=== PATIENT | female | born 1955 | race Caucasian/White ===

== ENCOUNTER 2022-10-14 06:45 | Emergency (ER) | payer SELFPAY ==
[~2022-10-14] VITALS: Ht 157.5 cm; Wt 99.8 kg
[~2022-10-14 06:45] MED LIST: EFFEXOR XR 3737.5 MG PO; EFFXR75 PO; EVISTA60 MG PO; FEXOFENADINE HC60 MG PO; FIORICET1 EA PO; LEVAQUIN500 MG PO; LEVOTHYROXINE50 MCG PO; LOPRESSOR25 MG PO; NRC7.5T PO; VENLAFAXINE HCL75 M1 PO
[2022-10-14] MEDS ORDERED: PAXLOVID 300-11 EACH PO (07:52)
[2022-10-14] MEDS ORDERED: ONDANSETRON ODT4 MG PO (07:53)
== END 2022-10-14 08:10 | disposition home or self-care (01) ==
LOC: FSED 07:11
DX: R05.9 Cough, unspecified (principal); U07.1 COVID-19; E03.9 Hypothyroidism, unspecified; F32.A Depression, unspecified; M81.0 Age-related osteoporosis without current pathological fracture; Z85.3 Personal history of malignant neoplasm of breast; F17.210 Nicotine dependence, cigarettes, uncomplicated
CPT/HCPCS: 83518; 87400; 99282

== ENCOUNTER 2024-02-20 13:28 | Emergency (ER) | payer MEDICARE ==
[~2024-02-20] VITALS: Ht 157.5 cm; Wt 96.3 kg
[~2024-02-20 13:28] MED LIST changes: +ACETAMINOPHEN-1 EAC4 PO; +IBUPROFEN600 MG PO; +ONDANSETRON ODT4 MG PO; +PAXLOVID 300-11 EACH PO
[2024-02-20 13:55] VITALS: PULSE 81; RESP 18; TEMP 97.4; O2SAT 96
[2024-02-20] MEDS ORDERED: CEFUROXIME500 MG PO (14:47)
[2024-02-20] MEDS ORDERED: PHENAZOPYRIDIN200 MG PO (14:48)
[2024-02-20] MEDS ORDERED: NAPROSYN500 MG PO (14:48)
== END 2024-02-20 15:00 | disposition home or self-care (01) ==
LOC: FSED 13:43
DX: N39.0 Urinary tract infection, site not specified (principal); R30.0 Dysuria; M79.18 Myalgia, other site; E03.9 Hypothyroidism, unspecified
CPT/HCPCS: 81003; 99283

== ENCOUNTER 2024-11-29 16:01 | Emergency (ER) | payer MEDICARE ==
[~2024-11-29] VITALS: Ht 157.5 cm; Wt 100.0 kg
[~2024-11-29 16:01] MED LIST changes: +CEFUROXIME500 MG PO; +NAPROSYN500 MG PO; +PHENAZOPYRIDIN200 MG PO
[2024-11-29 16:13] VITALS: TEMP 97.8
[2024-11-29] MEDS: TRAMADOL HCL 50 MG TAB PO ONE (16:46)
[2024-11-29] MEDS ORDERED: ULTRAM 50MG50 MG PO (20:32)
[2024-11-29 20:36] VITALS: PULSE 85; RESP 18
[2024-11-29 20:49] VITALS: BP 147/86; O2SAT 100
== END 2024-11-29 20:50 | disposition home or self-care (01) ==
LOC: FSED 16:13
DX: S22.32XA Fracture of one rib, left side, initial encounter for closed fracture (principal); R93.89 Abnormal findings on diagnostic imaging of other specified body structures; W01.0XXA Fall on same level from slipping, tripping and stumbling without subsequent striking against object, initial encounter; Y92.89 Other specified places as the place of occurrence of the external cause; E03.9 Hypothyroidism, unspecified; M81.0 Age-related osteoporosis without current pathological fracture; M19.09 Primary osteoarthritis, other specified site; F32.A Depression, unspecified; Z85.3 Personal history of malignant neoplasm of breast
CPT/HCPCS: 71111; 99283